=== PATIENT | male | born 1965 | race Caucasian/White ===

== ENCOUNTER 2023-08-18 10:23 | Emergency (ER) | payer BC ==
[2023-08-18 11:55] VITALS: BP 153/97; PULSE 95; RESP 20; TEMP 97.7; BMI 39.1
== END 2023-08-18 10:48 | disposition home or self-care (01) ==
LOC: FER 10:23
DX: R40.0 Somnolence (principal); T38.895A Adverse effect of other hormones and synthetic substitutes, initial encounter
CPT/HCPCS: 99282-25